=== PATIENT | female | born 1935 | race Caucasian/White ===

== ENCOUNTER 2024-03-10 15:27 | Inpatient (IN) | payer OTHER ==
[~2024-03-10] VITALS: Ht 147.3 cm; Wt 52.2 kg
[2024-03-10] MEDS ORDERED: MORPHINE SULFATE 4 MG/1 ML DISP.SYRIN ONE ×2 (15:50→18:18)
[2024-03-10] MEDS ORDERED: ONDANSETRON 4 MG/2 ML VIAL ONE ×2 (15:50→18:18)
[2024-03-10] MEDS ORDERED: TDAP DIPH,PERTUSS,TET VAC/PF 0.5 ML DISP.SYRIN IM ONE (15:50)
[2024-03-10 15:58] LABS: BASOPHILS % (AUTO) 0.3 % (0.0-2.0); EOSINOPHILS # (AUTO) 0.1 K/uL (0.0-0.7); EOSINOPHILS % (AUTO) 0.7 % (0.0-7.0); HEMATOCRIT 31.2 % (31.2-41.9); HEMOGLOBIN 10.5 g/dL (10.9-14.3); LYMPHOCYTES # (AUTO) 0.9 K/uL (0.8-4.8); LYMPHOCYTES % (AUTO) 10.9 % (20.5-51.5); MEAN CORPUSCULAR HEMOGLOBIN 32.8 uug (24.7-32.8); MEAN CORPUSCULAR HGB CONC 34 g/dL (32.3-35.6); MEAN CORPUSCULAR VOLUME 97.1 fL (75.5-95.3); MONOCYTES # (AUTO) 0.6 K/uL (0.1-1.30); MONOCYTES % (AUTO) 7.1 % (0.0-11.0); NEUTROPHILS # (AUTO) 6.8 K/uL (1.8-8.9); PLATELET COUNT (AUTO) 237 K/uL (179-408); RED BLOOD CELL COUNT(AUTO) 3.21 MIL/uL (3.63-4.92); RED CELL DISTRIBUTION WIDTH 13.6 % (12.3-17.7); WHITE BLOOD COUNT (AUTO) 8.4 K/uL (3.8-11.8)
[2024-03-10] MEDS: ONDANSETRON 4 MG/2 ML VIAL IV ONE ×2 (15:58→18:20)
[2024-03-10] MEDS: TDAP DIPH,PERTUSS,TET VAC/PF 0.5 ML DISP.SYRIN IM ONE (15:58)
[2024-03-10] MEDS: MORPHINE SULFATE 2 MG/1 ML DISP.SYRIN IV ONE (15:59)
[2024-03-10 16:10] LABS: CALCIUM 8.8 mg/dL (8.5-10.1); CARBON DIOXIDE 28 mmol/L (21-32); CHLORIDE 107 mmol/L (98-107); CREATININE 0.9 mg/dL (0.6-1.3); GLUCOSE 117 mg/dL (74-106); POTASSIUM 4.1 mmol/L (3.5-5.1); SODIUM SERUM 143 mmol/L (136-145); UREA NITROGEN, BLOOD 18 mg/dL (7-18)
[2024-03-10 16:21] LABS: DIFFERENTIAL COMMENT 1
[2024-03-10 16:22] LABS: ALANINE AMINOTRANSFERASE 18 U/L (14-59); ALBUMIN 3.4 g/dL (3.4-5.0); ALKALINE PHOSPHATASE 143 U/L (50-136); ASPARTATE AMINOTRANSFERASE 11 U/L (15-37); BILIRUBIN,DIRECT 0.2 mg/dL (0.0-0.2); BILIRUBIN,TOTAL 0.5 mg/dL (0.2-1.0); NT-PRO BNP 801 pg/mL (0-125); TOTAL PROTEIN, SERUM 6.9 g/dL (6.4-8.2)
[2024-03-10] MEDS: MORPHINE SULFATE 4 MG/1 ML DISP.SYRIN IV ONE ×2 (18:19→21:02)
[2024-03-10] MEDS ORDERED: ONDANSETRON 4 MG/2 ML VIAL IV PRN (18:45)
[2024-03-10] MEDS ORDERED: MORPHINE SULFATE 2 MG/1 ML DISP.SYRIN ONE (20:57)
[2024-03-11] MEDS: MORPHINE SULFATE 4 MG/1 ML DISP.SYRIN IV PRN (00:53)
[2024-03-11 05:29] VITALS: BP 133/56; TEMP 98; O2SAT 97
[2024-03-11] MEDS ORDERED: HYDROMORPHONE 1 MG/1 ML DISP.SYRIN IV PRN ×2 (05:30→05:45)
[2024-03-11 06:02] VITALS: BP 131/41; TEMP 98; O2SAT 97
[2024-03-11] MEDS: PANTOPRAZOLE SODIUM 40 MG TABLET.DR PO SCH (06:21)
[2024-03-11] MEDS: HYDROMORPHONE 1 MG/1 ML DISP.SYRIN IV PRN (06:29)
[2024-03-11 07:49] LABS: CALCIUM 8.5 mg/dL (8.5-10.1); CARBON DIOXIDE 30 mmol/L (21-32); CHLORIDE 104 mmol/L (98-107); CHOLESTEROL 116 mg/dL (<200); CREATININE 0.8 mg/dL (0.6-1.3); GLUCOSE 100 mg/dL (74-106); HDL CHOLESTEROL 72 mg/dL (40-60); MAGNESIUM 1.8 mg/dL (1.8-2.4); PHOSPHOROUS 4.2 mg/dL (2.5-4.9); POTASSIUM 4.3 mmol/L (3.5-5.1); SODIUM SERUM 141 mmol/L (136-145); TRIGLYCERIDES 49 MG/DL (30-150); UREA NITROGEN, BLOOD 17 mg/dL (7-18)
[2024-03-11 08:51] LABS: BASOPHILS % (AUTO) 0.5 % (0.0-2.0); EOSINOPHILS % (AUTO) 0.3 % (0.0-7.0); HEMATOCRIT 29.1 % (31.2-41.9); HEMOGLOBIN 9.7 g/dL (10.9-14.3); LYMPHOCYTES # (AUTO) 1.7 K/uL (0.8-4.8); LYMPHOCYTES % (AUTO) 18.8 % (20.5-51.5); MEAN CORPUSCULAR HEMOGLOBIN 32.6 uug (24.7-32.8); MEAN CORPUSCULAR HGB CONC 34 g/dL (32.3-35.6); MEAN CORPUSCULAR VOLUME 97.3 fL (75.5-95.3); MONOCYTES # (AUTO) 0.8 K/uL (0.1-1.30); MONOCYTES % (AUTO) 8.5 % (0.0-11.0); NEUTROPHILS # (AUTO) 6.6 K/uL (1.8-8.9); NEUTROPHILS % (AUTO) 71.9 % (38.5-71.5); PLATELET COUNT (AUTO) 228 K/uL (179-408); RED BLOOD CELL COUNT(AUTO) 2.99 MIL/uL (3.63-4.92); RED CELL DISTRIBUTION WIDTH 13.1 % (12.3-17.7); WHITE BLOOD COUNT (AUTO) 9.2 K/uL (3.8-11.8)
[2024-03-11 08:57] LABS: DIFFERENTIAL COMMENT 1
[2024-03-11] MEDS ORDERED: HYDR200T4 PO (11:16)
[2024-03-11] MEDS ORDERED: GEMTESA 75 MG PO (11:16)
[2024-03-11] MEDS ORDERED: SIMV10TA98 PO (11:16)
[2024-03-11] MEDS ORDERED: GABA300C PO (11:16)
[2024-03-11] MEDS ORDERED: TRAM50TA2 PO (11:16)
[2024-03-11] MEDS ORDERED: PANT40TA2 PO (11:16)
[2024-03-11] MEDS ORDERED: LOSA50TA39 PO (11:16)
[2024-03-11 11:33] VITALS: BP 128/49; TEMP 97.9; O2SAT 95
[2024-03-11 15:30] VITALS: BP 125/50; TEMP 98; O2SAT 96
[2024-03-11 21:16] VITALS: BP 104/37; TEMP 100.4; O2SAT 91
[2024-03-11] MEDS: ACETAMINOPHEN 325 MG TABLET PO PRN (23:28)
[2024-03-12 05:18] VITALS: BP 106/39; TEMP 97.5; O2SAT 98
[2024-03-12 07:09] LABS: BASOPHILS % (AUTO) 0.3 % (0.0-2.0); EOSINOPHILS # (AUTO) 0.1 K/uL (0.0-0.7); EOSINOPHILS % (AUTO) 1.2 % (0.0-7.0); HEMATOCRIT 25.8 % (31.2-41.9); HEMOGLOBIN 8.8 g/dL (10.9-14.3); LYMPHOCYTES # (AUTO) 1.2 K/uL (0.8-4.8); LYMPHOCYTES % (AUTO) 13.7 % (20.5-51.5); MEAN CORPUSCULAR HEMOGLOBIN 33.3 uug (24.7-32.8); MEAN CORPUSCULAR HGB CONC 34 g/dL (32.3-35.6); MEAN CORPUSCULAR VOLUME 97.3 fL (75.5-95.3); MONOCYTES % (AUTO) 11.1 % (0.0-11.0); NEUTROPHILS # (AUTO) 6.4 K/uL (1.8-8.9); NEUTROPHILS % (AUTO) 73.7 % (38.5-71.5); PLATELET COUNT (AUTO) 191 K/uL (179-408); RED BLOOD CELL COUNT(AUTO) 2.65 MIL/uL (3.63-4.92); RED CELL DISTRIBUTION WIDTH 13.1 % (12.3-17.7); WHITE BLOOD COUNT (AUTO) 8.6 K/uL (3.8-11.8)
[2024-03-12] MEDS ORDERED: MIDAZOLAM HCL 2 MG/2 ML VIAL ONE (07:18)
[2024-03-12] MEDS ORDERED: FENTANYL CITRATE 100 MCG/2 ML AMPUL ONE ×3 (07:18→10:27)
[2024-03-12 07:36] LABS: DIFFERENTIAL COMMENT 1
[2024-03-12 07:44] LABS: CALCIUM 8.2 mg/dL (8.5-10.1); CARBON DIOXIDE 30 mmol/L (21-32); CHLORIDE 103 mmol/L (98-107); FERRITIN 131 ng/mL (8-252); GLUCOSE 117 mg/dL (74-106); PHOSPHOROUS 3.9 mg/dL (2.5-4.9); POTASSIUM 4.1 mmol/L (3.5-5.1); SODIUM SERUM 140 mmol/L (136-145); UREA NITROGEN, BLOOD 19 mg/dL (7-18)
[2024-03-12] MEDS ORDERED: PROPOFOL 200 MG/20 ML BOTTLE ONE (07:46)
[2024-03-12] MEDS ORDERED: VANCOMYCIN 1000 MG VIAL ONE (08:14)
[2024-03-12] MEDS ORDERED: SEVOFLURANE 250 ML BOTTLE ONE (08:18)
[2024-03-12 08:30] LABS: IRON, SERUM 25 ug/dL (50-175)
[2024-03-12 08:32] LABS: THYROID STIMULATING HORMONE 1.917 mIU/mL (0.358-3.740)
[2024-03-12 08:50] LABS: *BILIRUBIN,URIN NEGATIVE (NEGATIVE); *BLOOD, URINE NEGATIVE (NEGATIVE); *CLARITY,URINE CLEAR (CLEAR); *COLOR,URINE YELLOW (YELLOW); *KETONES,URINE NEGATIVE (NEGATIVE); *PROTEIN,URINE NEGATIVE (NEGATIVE); *UROBILINOGEN,URINE 0.2 E.U./dl (NORMAL); LEUKOCYTE ESTERASE ,URINE NEGATIVE (NEGATIVE); NITRITE, URINE NEGATIVE (NEGATIVE); PH,URINE 5.5 (5.0-8.0); UGLUCOSE NEGATIVE (NEGATIVE)
[2024-03-12] MEDS ORDERED: ONDANSETRON 4 MG/2 ML VIAL IV PRN (10:15)
[2024-03-12] MEDS: FENTANYL CITRATE 100 MCG/2 ML AMPUL IV PRN (10:15)
[2024-03-12 12:00] VITALS: BP 131/56; TEMP 98; O2SAT 97
[2024-03-12 13:00] VITALS: BP 136/56; TEMP 97.5; O2SAT 98
[2024-03-12] MEDS: POTASSIUM CHLORIDE 20 MEQ in IV D5 1/2 NS 1000 ML 1,000 ML IV PRN (13:51)
[2024-03-12 16:00] VITALS: BP 108/42; TEMP 97.5; O2SAT 98
[2024-03-12] MEDS: MORPHINE SULFATE 2 MG/1 ML DISP.SYRIN IV PRN (16:24)
[2024-03-12] MEDS: CEFAZOLIN 1 G in IV DEXTROSE 5% 50 ML IV SCH (16:29)
[2024-03-12 21:02] VITALS: BP 116/51; TEMP 97.7; O2SAT 96
[2024-03-13 09:39] VITALS: BP 119/49; TEMP 98.3; O2SAT 96
[2024-03-13 11:35] LABS: BASOPHILS % (AUTO) 0.2 % (0.0-2.0); EOSINOPHILS % (AUTO) 0.4 % (0.0-7.0); HEMATOCRIT 23.3 % (31.2-41.9); HEMOGLOBIN 7.8 g/dL (10.9-14.3); LYMPHOCYTES # (AUTO) 1.4 K/uL (0.8-4.8); LYMPHOCYTES % (AUTO) 11.9 % (20.5-51.5); MEAN CORPUSCULAR HGB CONC 34 g/dL (32.3-35.6); MEAN CORPUSCULAR VOLUME 98.3 fL (75.5-95.3); MONOCYTES # (AUTO) 1.4 K/uL (0.1-1.30); NEUTROPHILS # (AUTO) 8.7 K/uL (1.8-8.9); NEUTROPHILS % (AUTO) 75.5 % (38.5-71.5); PLATELET COUNT (AUTO) 197 K/uL (179-408); RED CELL DISTRIBUTION WIDTH 13.7 % (12.3-17.7); WHITE BLOOD COUNT (AUTO) 11.5 K/uL (3.8-11.8)
[2024-03-13 12:00] VITALS: BP 112/46; TEMP 98; O2SAT 96
[2024-03-13 12:02] LABS: DIFFERENTIAL COMMENT 1; RED BLOOD CELL COUNT(AUTO) 2.37 MIL/uL (3.63-4.92)
[2024-03-13 12:19] LABS: ALANINE AMINOTRANSFERASE 15 U/L (14-59); ALBUMIN 2.7 g/dL (3.4-5.0); ALKALINE PHOSPHATASE 98 U/L (50-136); ASPARTATE AMINOTRANSFERASE 29 U/L (15-37); BILIRUBIN,TOTAL 0.4 mg/dL (0.2-1.0); CALCIUM 7.6 mg/dL (8.5-10.1); CARBON DIOXIDE 28 mmol/L (21-32); CHLORIDE 109 mmol/L (98-107); CREATININE 0.8 mg/dL (0.6-1.3); GLUCOSE 115 mg/dL (74-106); MAGNESIUM 1.9 mg/dL (1.8-2.4); POTASSIUM 4.9 mmol/L (3.5-5.1); SODIUM SERUM 145 mmol/L (136-145); TOTAL PROTEIN, SERUM 5.8 g/dL (6.4-8.2); UREA NITROGEN, BLOOD 16 mg/dL (7-18)
[2024-03-13 13:50] LABS: *BILIRUBIN,URIN NEGATIVE (NEGATIVE); *BLOOD, URINE NEGATIVE (NEGATIVE); *CLARITY,URINE CLEAR (CLEAR); *COLOR,URINE YELLOW (YELLOW); *KETONES,URINE NEGATIVE (NEGATIVE); *PROTEIN,URINE NEGATIVE (NEGATIVE); *UROBILINOGEN,URINE 0.2 E.U./dl (NORMAL); LEUKOCYTE ESTERASE ,URINE NEGATIVE (NEGATIVE); NITRITE, URINE NEGATIVE (NEGATIVE); UGLUCOSE NEGATIVE (NEGATIVE)
[2024-03-13] MEDS: HYDROCODONE/APAP 10-325 MG TABLET PO PRN (14:08)
[2024-03-13] MEDS: LACTULOSE 20 G/30 ML LIQUID UDC PO PRN (14:33)
[2024-03-13] MEDS: MIRALAX 17 GM POWD.PACK PO SCH (14:33)
[2024-03-13] MEDS: ENOXAPARIN SODIUM 40 MG/0.4 ML DISP.SYRIN SQ SCH (14:34)
[2024-03-13] MEDS: SOD FERRIC GLUC COMPLX/SUCROSE 125 MG in IV NORMAL SALINE 100 ML IV SCH (14:59)
[2024-03-13 16:00] VITALS: BP 129/40; TEMP 98.2; O2SAT 95
[2024-03-13 19:00] VITALS: BP 140/45; TEMP 98.4; O2SAT 96
[2024-03-14 06:00] VITALS: BP 125/40; TEMP 98.3; O2SAT 95
[2024-03-14 07:03] LABS: BASOPHILS % (AUTO) 0.5 % (0.0-2.0); EOSINOPHILS # (AUTO) 0.2 K/uL (0.0-0.7); EOSINOPHILS % (AUTO) 2.9 % (0.0-7.0); HEMATOCRIT 22.5 % (31.2-41.9); HEMOGLOBIN 7.7 g/dL (10.9-14.3); LYMPHOCYTES # (AUTO) 1.9 K/uL (0.8-4.8); LYMPHOCYTES % (AUTO) 22.8 % (20.5-51.5); MEAN CORPUSCULAR HEMOGLOBIN 33.5 uug (24.7-32.8); MEAN CORPUSCULAR HGB CONC 34 g/dL (32.3-35.6); MEAN CORPUSCULAR VOLUME 97.8 fL (75.5-95.3); MONOCYTES % (AUTO) 11.8 % (0.0-11.0); NEUTROPHILS # (AUTO) 5.2 K/uL (1.8-8.9); PLATELET COUNT (AUTO) 185 K/uL (179-408); RED CELL DISTRIBUTION WIDTH 13.4 % (12.3-17.7); WHITE BLOOD COUNT (AUTO) 8.4 K/uL (3.8-11.8)
[2024-03-14 07:10] LABS: DIFFERENTIAL COMMENT 1
[2024-03-14 07:22] LABS: CALCIUM 7.8 mg/dL (8.5-10.1); CARBON DIOXIDE 31 mmol/L (21-32); CHLORIDE 108 mmol/L (98-107); CREATININE 0.7 mg/dL (0.6-1.3); GLUCOSE 102 mg/dL (74-106); MAGNESIUM 1.9 mg/dL (1.8-2.4); PHOSPHOROUS 2.5 mg/dL (2.5-4.9); POTASSIUM 4.7 mmol/L (3.5-5.1); SODIUM SERUM 142 mmol/L (136-145); UREA NITROGEN, BLOOD 12 mg/dL (7-18)
[2024-03-14 07:52] VITALS: BP 121/47; TEMP 98.1; O2SAT 95
[2024-03-14 12:00] VITALS: BP 104/38; TEMP 97.9; O2SAT 93
[2024-03-14] MEDS: HYDROXYCHLOROQUINE SULFATE 200 MG TABLET PO SCH (13:20)
[2024-03-14] MEDS: IV NORMAL SALINE 500 ML IV ONE (13:23)
[2024-03-14] MEDS ORDERED: SOD FERRIC GLUC COMPLX/SUCROSE 125 MG in IV NORMAL SALINE 100 ML IV SCH (14:00)
[2024-03-14 16:00] VITALS: BP 111/34; TEMP 98.1; O2SAT 94
[2024-03-14 19:25] VITALS: BP 121/34; TEMP 98.1; O2SAT 96
[2024-03-14] MEDS: GABAPENTIN 300 MG CAPSULE PO SCH (20:47)
[2024-03-15 06:25] VITALS: BP 132/52; TEMP 97.7; O2SAT 94
[2024-03-15 11:07] VITALS: BP 127/46; TEMP 98.4; O2SAT 96
[2024-03-15 15:12] VITALS: BP 112/43; TEMP 98.2; O2SAT 96
[2024-03-15 19:00] VITALS: BP 128/33; TEMP 98.1; O2SAT 96
[2024-03-16 06:00] VITALS: BP 109/43; TEMP 98.4; O2SAT 97
[2024-03-16] MEDS ORDERED: LACT10SO7 PO (10:13)
[2024-03-16] MEDS ORDERED: HYDR-3980 PO (10:13)
[2024-03-16] MEDS ORDERED: POLY17PO4 PO (10:13)
[2024-03-16] MEDS ORDERED: ENOX40DI SQ (10:13)
[2024-03-16 11:21] VITALS: BP 125/48; TEMP 98.2; O2SAT 94
[2024-03-16 15:30] VITALS: BP 110/46; TEMP 98.2; O2SAT 96
[2024-03-16 20:12] VITALS: BP 123/31; TEMP 98.3
[2024-03-17 04:25] VITALS: BP 126/51; TEMP 98.4; O2SAT 96
[2024-03-17 11:33] VITALS: BP 105/30; TEMP 98.3; O2SAT 96
[2024-03-17 15:45] VITALS: BP 99/31; TEMP 98; O2SAT 97
[2024-03-17 19:43] VITALS: BP 117/45; TEMP 98.5; O2SAT 98
[2024-03-18 05:13] VITALS: BP 118/35; TEMP 97.6; O2SAT 100
[2024-03-18] MEDS: ARGININE/GLUTAMINE/CALCIUM BMB 1 EACH POWD.PACK PO SCH (08:24)
[2024-03-18 11:39] VITALS: BP 123/45; TEMP 98.1; O2SAT 97
[2024-03-18 15:48] VITALS: BP 119/43; TEMP 98.5; O2SAT 97
[2024-03-18 19:25] VITALS: BP 117/36; TEMP 98.1; O2SAT 97
[2024-03-19 06:24] VITALS: BP 128/48; TEMP 97.6; O2SAT 98
[2024-03-19 11:30] VITALS: BP 122/51; TEMP 98.4; O2SAT 96
[2024-03-19 12:15] VITALS: BP 122/51; TEMP 98.4; O2SAT 96
[2024-03-19 16:28] VITALS: BP 114/35; TEMP 98.6; O2SAT 96
[2024-03-19 20:00] VITALS: BP 130/51; TEMP 98.7; O2SAT 97
[2024-03-20 06:41] VITALS: BP 132/42; TEMP 98.2; O2SAT 98
[2024-03-20 21:05] VITALS: BP 114/46; TEMP 98.2; O2SAT 98
[2024-03-21 04:38] VITALS: BP 133/51; TEMP 97.9; O2SAT 96
[2024-03-21 12:05] LABS: BASOPHILS # (AUTO) 0.1 K/UL (0.0-0.2); BASOPHILS % (AUTO) 0.7 % (0.0-2.0); EOSINOPHILS # (AUTO) 0.1 K/uL (0.0-0.7); EOSINOPHILS % (AUTO) 0.8 % (0.0-7.0); HEMATOCRIT 27.4 % (31.2-41.9); HEMOGLOBIN 9.2 g/dL (10.9-14.3); LYMPHOCYTES # (AUTO) 1.1 K/uL (0.8-4.8); LYMPHOCYTES % (AUTO) 11.7 % (20.5-51.5); MEAN CORPUSCULAR HEMOGLOBIN 33.2 uug (24.7-32.8); MEAN CORPUSCULAR HGB CONC 34 g/dL (32.3-35.6); MEAN CORPUSCULAR VOLUME 99.1 fL (75.5-95.3); MONOCYTES # (AUTO) 0.7 K/uL (0.1-1.30); MONOCYTES % (AUTO) 7.9 % (0.0-11.0); NEUTROPHILS # (AUTO) 7.4 K/uL (1.8-8.9); NEUTROPHILS % (AUTO) 78.9 % (38.5-71.5); PLATELET COUNT (AUTO) 361 K/uL (179-408); RED BLOOD CELL COUNT(AUTO) 2.76 MIL/uL (3.63-4.92); WHITE BLOOD COUNT (AUTO) 9.4 K/uL (3.8-11.8)
[2024-03-21 12:17] LABS: CALCIUM 8.6 mg/dL (8.5-10.1); CARBON DIOXIDE 31 mmol/L (21-32); CHLORIDE 105 mmol/L (98-107); CREATININE 0.9 mg/dL (0.6-1.3); GLUCOSE 107 mg/dL (74-106); POTASSIUM 4.9 mmol/L (3.5-5.1); SODIUM SERUM 142 mmol/L (136-145); UREA NITROGEN, BLOOD 29 mg/dL (7-18)
[2024-03-21 15:41] VITALS: BP 131/51; TEMP 97.5; O2SAT 96
[2024-03-21 20:54] VITALS: BP 117/39; TEMP 97.4; O2SAT 97
[2024-03-22 07:23] VITALS: BP 129/41; TEMP 98.2; O2SAT 96
[2024-03-22 18:24] VITALS: BP 133/62; TEMP 98; O2SAT 97
[2024-03-22 20:00] VITALS: BP 133/35; TEMP 97.6; O2SAT 96
[2024-03-23 05:00] VITALS: BP 149/48; TEMP 98; O2SAT 96
[2024-03-23 16:12] VITALS: BP 105/44; TEMP 98.2; O2SAT 100
[2024-03-23 21:00] VITALS: BP 121/41; TEMP 97.9; O2SAT 98
[2024-03-24 00:22] VITALS: BP 107/60; TEMP 97.6; O2SAT 93
[2024-03-24 04:00] VITALS: BP 142/52; TEMP 97.6; O2SAT 97
[2024-03-24 11:35] VITALS: BP 122/42; TEMP 97.8; O2SAT 97
[2024-03-24 15:35] VITALS: BP 120/48; TEMP 97.7; O2SAT 99
[2024-03-24 19:05] VITALS: BP 127/74; TEMP 97.8; O2SAT 98
[2024-03-25 05:40] VITALS: BP 124/42; TEMP 97.9; O2SAT 99
[2024-03-25 12:31] VITALS: BP 108/37; TEMP 98.3; O2SAT 96
[2024-03-25 16:00] VITALS: BP 119/42; TEMP 98.6; O2SAT 97
[2024-03-25 19:00] VITALS: BP 132/40; TEMP 98; O2SAT 98
== END 2024-03-25 21:34 | DRG 481 ==
LOC: ER 15:27 → MEDSURG3 22:59 → MEDSURG1 03-21 04:46 → MEDSURG3 03-23 21:30
PROVIDERS: ADMIT Nurse Practitioner Family; ATTEND Nurse Practitioner Family
PROC: 0QSB04Z Reposition Right Lower Femur with Internal Fixation Device, Open Approach (ICD-10-PCS; principal; 2024-03-12)
DX: S72.401A Unspecified fracture of lower end of right femur, initial encounter for closed fracture (principal); M97.11XA Periprosthetic fracture around internal prosthetic right knee joint, initial encounter; W01.0XXA Fall on same level from slipping, tripping and stumbling without subsequent striking against object, initial encounter; Y92.008 Other place in unspecified non-institutional (private) residence as the place of occurrence of the external cause; Z96.651 Presence of right artificial knee joint; M35.00 Sjogren syndrome, unspecified; Z98.1 Arthrodesis status; I10 Essential (primary) hypertension; D64.9 Anemia, unspecified; Z96.642 Presence of left artificial hip joint; Z75.1 Person awaiting admission to adequate facility elsewhere
CPT/HCPCS: 36415; 71045; 73560; 73590; 82746; 83550; 83735; 84100; 84443; 84484; 85025; 85730; 90715; 93307; A4649; A4663; A6209; A6213; C1713; C1758; G0378; J0690; J1100; J1171; J1650; J1885; J2250; J2270; J2405; J2916; J3010; J3370; J3480; J3490; J7040